=== PATIENT | female | born 1985 | race Asian ===

== ENCOUNTER 2021-04-19 01:04 | Emergency (ER) | payer OTHER, SELFPAY ==
[2021-04-19] VITALS (7 sets, daily range): BP systolic 159–176; BP diastolic 97–132; PULSE 102–140; RESP 18–24; TEMP 36.8; O2SAT 88–100; BMI 22.8
--- NOTE | ~2021-04-19 | XR_ITS ---
EXAMINATION: XR CHEST CLINICAL INFORMATION: Shortness of breath COMPARISON: None TECHNIQUE: Frontal view of the chest was obtained. FINDINGS: The lungs are clear with no focal consolidation. No evidence of pneumothorax, pulmonary edema, or pleural effusions. The cardiomediastinal silhouette is unremarkable. No acute osseous findings. XR/XR chest 1V IMPRESSION: No acute cardiopulmonary findings.
--- NOTE | 2021-04-19 01:31 | ED_ITS ---
HPI - SOB/Dyspnea General Chief Complaint: Dyspnea Stated Complaint: Asthma Time Seen by Provider: 04/19/21 01:25 Source: patient Mode of arrival: ambulatory Limitations: no limitations History of Present Illness HPI Narrative: Patient comes to emergency room complaining of wheezing. Patient states that she is being worked up for allergies to worse catheterization, patient does have a cat at home. Prior to arrival, patient used her inhaler, states that she is feeling much better now. Patient denies chest pain, no palpitations. It was noted the patient's blood pressure is on the higher side, states that she has been told before that she has high blood pressure but is not on any BP medications. Denies headache, no visual changes, no chest pain. Patient states she has history of childhood asthma, however over the last couple of weeks, patient has been having more exacerbations, believes is secondary to cat hair exposure Related Data Previous Rx's Medication Instructions Recorded albuterol sulfate 90 mcg/actuation 2 puff INHALATION Q4-6H PRN #8.5 g 04/19/21 aerosol inhaler prednisone 50 mg tablet 50 mg PO DAILY #5 tab 04/19/21 Allergies Allergy/AdvReac Type Severity Reaction Status Date / Time cat dander Allergy Unknown Verified 04/19/21 01:25 Sulfa (Sulfonamide Allergy Unknown Verified 04/19/21 01:25 Antibiotics) Review of Systems Review of Systems: Constitutional : No Weight loss, No Fever, No Chills, No Night Sweats, No Fatigue, No Malaise ENT/Mouth : No Hearing loss, No Ear Pain, No Nasal Congestion, No Sinus Pain, No Hoarseness, No sore throat, No Rhinorrhea, No Swallowing Difficulty Eyes: No Eye Pain, No Swelling, No Redness, No Foreign Body, No Discharge, No Vision Changes Cardiovascular : No Chest Pain, No SOB, No Dyspnea on Exertion, No Orthopnea, No Edema, No Palpitations Respiratory : No Cough, No Sputum, complaining of Wheezing, No Smoke Exposure, No Dyspnea Gastrointestinal : No Nausea, No Vomiting, No Diarrhea, No Constipation, No abdominal Pain, No Hematochezia, No Melena Genitourinary : no irregular bleeding, No Dysuria, No Urinary Frequency, No Hematuria, No Urinary Incontinence, No Urgency, No Flank Pain, No Urinary Flow Changes, No Hesitancy Musculoskeletal : No joint pain, No Myalgias, No Joint Swelling Skin : No Skin Lesions, No rash Neuro : No Weakness, No Numbness, No Paresthesias, No Loss of Consciousness, No Dizziness, No Headache Psych : No Anxiety/Panic, No Depression, No SI/HI/AH/VH, No Social Issues, Heme/Lymph: No Bruising, No Bleeding,No Lymphadenopathy Endocrine : No Polyuria, No Polydipsia, No Temperature Intolerance [facility] Past Medical History Medical History Asthma Social History Social History Advance Directives: No Advance Directives Information Provided: No Patient : No Physical Exam Vital Signs: Vital Signs: Last Vital Signs Temp 98.3 F 04/19/21 01:13 Pulse 140 H 04/19/21 04:12 Resp 18 04/19/21 03:53 BP 159/100 H 04/19/21 03:53 Pulse Ox 96 04/19/21 04:12 Body Mass Index 22.8 Const: Other: Appearance: Alert. Oriented X3. No acute distress. Eyes: Pupils equal, round and reactive to light. ENT: Pharynx normal. Neck: Normal inspection. Neck supple. No lymph nodes noted. No crepitus CVS: Normal heart rate and rhythm. Pulses normal. Normal S1 and S2 Respiratory: No respiratory distress. Breath sounds normal speaking in full sentences, normal respiratory rate, occasional bilateral wheezing, more noticeable in the right lung. Abdomen: Soft and nontender. No rigidity. No distention. good BS x4 Skin: Skin warm and dry. Normal skin color. Normal skin turgor. Extremities: No lower extremity edema. No Lacerations. No Rash Neuro: Oriented X 3. No motor deficit. No sensory deficit. Moving all extermities. No slurred speech. Course Course Course Narrative: Initially patient was given oral prednisone. Patient was doing well on room air, when patient was ambulated, her oxygen saturation dropped to 80% and started wheezing. Patient received an hour long treatment, magnesium, Solu-Medrol. Patient's D-dimer negative. Wells criteria score for PE is 1.5 (points given for tachycardia, however patient just had an hour long neb treatment) . After IV sedation treatments, patient was ambulated again, it was noted that patient's oxygenation dropped to 80 again, however patient was completely asymptomatic. We switched the machine and seems that the O2 monitor was nonfunctioning. Patient's oxygen saturation remained 95% and above while walking and patient asymptomatic. MDM - SOB/Dyspnea Lab Data Result diagrams: 04/19/21 02:33 04/19/21 02:33 Labs: Lab Results 04/19/21 04/19/21 04/19/21 Range/Units 01:23 02:33 02:33 WBC 10.5 (4.8-10.8) X10*3/uL RBC 4.99 (4.20-5.50) X10*6/uL Hgb 13.7 (12.0-16.0) g/dl Hct 41.5 (37.0-47.0) % MCV 83.2 (80.0-98.0) fL MCH 27.5 (27.0-33.0) pg MCHC 33.0 (31.0-35.0) g/dl RDW 13.3 (11.0-16.0) % Plt Count 147 L (160-400) X10*3/uL MPV 11.3 (9.4-12.3) fL Immature Gran % (Auto) 0.5 H (0.0-0.4) % Neut % (Auto) 65.4 (45-73) % Lymph % (Auto) 24.9 (20-40) % [place] % (Auto) 5.9 (2-11) % Eos % (Auto) 2.9 (0-4) % Baso % (Auto) 0.4 (0-2) % Lymph # (Auto) 2.6 (1.2-4.9) X10*3/uL [place] # (Auto) 0.6 (0.1-1.2) X10*3/uL Eos # (Auto) 0.3 (0.0-0.4) X10*3/uL Baso # (Auto) 0.0 (0.0-0.2) X10*3/uL Abs Immat Gran (auto) 0.05 H (0.00-0.03) X10*3/uL Absolute Neuts (auto) 6.9 (2.0-8.3) x10*3/uL Absolute Nucleated RBC 0.000 (0.0-0.012) X10*3/uL Nucleated RBC % (auto) 0.0 (0.0-0.2) /100WBC D-Dimer High Sensitivty < 150 NG/ML Sodium (135-145) mmol/L Potassium (3.3-5.1) mmol/L Chloride (96-108) mmol/L Carbon Dioxide (22-29) mmol/L Anion Gap (12-20) BUN (9-16) mg/dL Creatinine (0.5-1.4) mg/dL Estim Creat Clear Calc Estimated GFR Random Glucose (60-115) mg/dL Calcium (8.4-10.2) mg/dL Troponin I High Sens (<3.5-17.0) ng/L COVID-19 ([facility]) Negative (Negative) COVID-19 Clin Com See Note 04/19/21 04/19/21 Range/Units 02:33 02:33 WBC (4.8-10.8) X10*3/uL RBC (4.20-5.50) X10*6/uL Hgb (12.0-16.0) g/dl Hct (37.0-47.0) % MCV (80.0-98.0) fL MCH (27.0-33.0) pg MCHC (31.0-35.0) g/dl RDW (11.0-16.0) % Plt Count (160-400) X10*3/uL MPV (9.4-12.3) fL Immature Gran % (Auto) (0.0-0.4) % Neut % (Auto) (45-73) % Lymph % (Auto) (20-40) % [place] % (Auto) (2-11) % Eos % (Auto) (0-4) % Baso % (Auto) (0-2) % Lymph # (Auto) (1.2-4.9) X10*3/uL [place] # (Auto) (0.1-1.2) X10*3/uL Eos # (Auto) (0.0-0.4) X10*3/uL Baso # (Auto) (0.0-0.2) X10*3/uL Abs Immat Gran (auto) (0.00-0.03) X10*3/uL Absolute Neuts (auto) (2.0-8.3) x10*3/uL Absolute Nucleated RBC (0.0-0.012) X10*3/uL Nucleated RBC % (auto) (0.0-0.2) /100WBC D-Dimer High Sensitivty NG/ML Sodium 138 (135-145) mmol/L Potassium 4.0 (3.3-5.1) mmol/L Chloride 104 (96-108) mmol/L Carbon Dioxide 27 (22-29) mmol/L Anion Gap 11 L (12-20) BUN 12 (9-16) mg/dL Creatinine 0.75 (0.5-1.4) mg/dL Estim Creat Clear Calc 93.2 Estimated GFR > 60 Random Glucose 97 (60-115) mg/dL Calcium 9.3 (8.4-10.2) mg/dL Troponin I High Sens < 3.5 (<3.5-17.0) ng/L COVID-19 ([facility]) (Negative) COVID-19 Clin Com Imaging Data Chest x-ray: Radiologist's impression: FINDINGS: The lungs are clear with no focal consolidation. No evidence of pneumothorax, pulmonary edema, or pleural effusions. The cardiomediastinal silhouette is unremarkable. No acute osseous findings. XR/XR chest 1V IMPRESSION: No acute cardiopulmonary findings Scores Wells PE Heart rate > 100 p/min: 1.5 Score: 1.5 2-tier Risk: unlikely risk (5%) 3-tier Risk: low risk (3.4%) Discharge Plan Discharge Clinical Impression: Bilateral wheezing Patient Disposition: Home, Self-Care Instructions: Wheezing (ED) Additional Instructions: Please follow-up with your primary care physician tomorrow. If you have any worsening or new symptoms, please return to the emergency room or call 911 Prescriptions: New prednisone 50 mg tablet 50 mg PO DAILY Qty: 5 RF: 0 albuterol sulfate 90 mcg/actuation HFA aerosol inhaler 2 puff inhalation Q4-6H PRN (Reason: shortness of breath or wheezing) Qty: 8.5 RF: 0
[2021-04-19] MEDS: predniSONE 20 MG TABLET 60 MG PO (01:41)
[2021-04-19 01:56] LABS: COVID-19 Test Negative (Negative)
[2021-04-19] MEDS: Albuterol Sulfate (0.083%) 2.5 MG/3 ML VIAL.NEB 10 MG INHALE (02:42)
[2021-04-19 03:04] LABS: MANUAL DIFF FLAG NO
[2021-04-19 03:05] LABS: Basophils Percent Auto 0.4 % (0-2); Eosinophils Absolute Auto 0.3 X10*3/uL (0.0-0.4); Eosinophils Percent Auto 2.9 % (0-4); Hematocrit 41.5 % (37.0-47.0); Hemoglobin 13.7 g/dl (12.0-16.0); Imm Gran Abs Auto 0.05 X10*3/uL (0.00-0.03); Imm Gran Pct Auto 0.5 % (0.0-0.4); Lymphocytes Absolute Auto 2.6 X10*3/uL (1.2-4.9); Lymphocytes Percent Auto 24.9 % (20-40); Mean Corpuscular Hemoglobin 27.5 pg (27.0-33.0); Mean Corpuscular Volume 83.2 fL (80.0-98.0); Mean Platelet Volume 11.3 fL (9.4-12.3); Monocytes Absolute Auto 0.6 X10*3/uL (0.1-1.2); Monocytes Percent Auto 5.9 % (2-11); Neutrophils Absolute Auto 6.9 x10*3/uL (2.0-8.3); Neutrophils Percent Auto 65.4 % (45-73); Platelet Count 147 X10*3/uL (160-400); Red Blood Count 4.99 X10*6/uL (4.20-5.50); Red Cell Distribution Width 13.3 % (11.0-16.0); White Blood Count 10.5 X10*3/uL (4.8-10.8)
[2021-04-19] MEDS: Magnesium Sulfate/H2O 2 GM/50 ML PIGGYBACK IV (03:16)
[2021-04-19] MEDS: methylPREDNISolone Sod Succ 125 MG/2 ML VIAL IVPUSH (03:16)
[2021-04-19 03:22] LABS: Anion Gap 11 (12-20); Blood Urea Nitrogen 12 mg/dL (9-16); Calcium 9.3 mg/dL (8.4-10.2); Carbon Dioxide 27 mmol/L (22-29); Chloride 104 mmol/L (96-108); Creatinine Clr Calc Pharmacy 93.2; Estimated Glomerular Filt Rate > 60; Glucose Random 97 mg/dL (60-115); Sodium 138 mmol/L (135-145)
[2021-04-19 03:25] LABS: Troponin-I High Sensitivity < 3.5 ng/L (<3.5-17.0)
[2021-04-19 03:29] LABS: D Dimer High Sensitivity < 150 NG/ML
--- NOTE | 2021-04-19 03:44 | PC.NURSE ---
at bedside. Plan for ambulation trial.
--- NOTE | 2021-04-19 03:46 | PC.NURSE ---
PT ambulated down the siegel to assess pulse ox reading. PT started at 99% while getting out of bed. After walking 20-30 ft down the siegel O2 sat started to drop down and went as low at 88% on the monitor while walking. Once PT stopped walking and stood still O2 reading increased back to 99%. PT denies any dyspnea or SOB.
--- NOTE | 2021-04-19 04:13 | PC.NURSE ---
Multiple pulse oximetry machines giving nursing very different readings during ambulation trials. Third machine reading 93-100% while ambulating. MD aware. Per MD, plan for discharge.
[2021-04-19 04:47] LABS: B Type Natriuretic Peptide < 10 pg/mL (<100)
== END 2021-04-19 04:26 | disposition home or self-care (01) ==
PROVIDERS: Emergency Provider Emergency Medicine; PCP Family Medicine
DX: R06.2 Wheezing (principal); R06.00 Dyspnea, unspecified; Z20.822 Contact with and (suspected) exposure to COVID-19; J45.909 Unspecified asthma, uncomplicated; Z79.899 Other long term (current) drug therapy
CPT/HCPCS: 36415; 71045; 80048; 83880; 84484; 85025; 85379; 87635; 94640; 94644; 96365; 96366; 96375; 99284; J2930; J3475